=== PATIENT | female | born 1995 | race Caucasian/White ===

== ENCOUNTER 2020-11-24 17:44 | Emergency (ER) | payer OTHER ==
[~2020-11-24] VITALS: Ht 170.2 cm; Wt 95.3 kg
[~2020-11-24 17:44] MED LIST: ALBU17AE26
[2020-11-24 17:46] VITALS: BP_SYST 130
--- NOTE | 2020-11-24 18:10 | NUR ---
Patient to ER bed 4 to gown for evaluation. Side rails up.
--- NOTE | 2020-11-24 18:15 | NUR ---
ER at bedside examining patient.
--- NOTE | 2020-11-24 18:17 | NUR ---
PT ARRIVES FROM HOME W/ C/O MID CHEST WALL PAIN FOR APPROX 45 MIN. PT HAD HER TWO UPPER WISDOM TEETH REMOVED THIS AM. REPORTS HAVING A SYNCOPAL EPISODE IN THE RESTROOM THIS AM, C/O JIMENEZ 11/14
--- NOTE | 2020-11-24 18:25 | NUR ---
Pavel ferguson in ED - 11/24/20 at 1842 by RODNEYNLAURA WALE Marquez at bedside examining patient.
--- NOTE | 2020-11-24 18:40 | NUR ---
Patient transported to radiology via , accompanied by [employer].
[2020-11-24 19:03] LABS: BASOPHILS % (AUTO) 0.1 % (0.0-2.0); EOSINOPHILS # (AUTO) 0.2 K/uL (0.0-0.4); HEMATOCRIT 36.3 % (36-48); HEMOGLOBIN 12.1 g/dL (12.0-16.0); LYMPHOCYTES # (AUTO) 2.2 K/uL (1.0-5.5); LYMPHOCYTES % (AUTO) 12.7 % (20.5-51.5); MEAN CORPUSCULAR HEMOGLOBIN 30 pg (27-31); MEAN CORPUSCULAR HGB CONC 33 % (32-36); MEAN CORPUSCULAR VOLUME 90 fL (79.0-98.0); MONOCYTES # (AUTO) 0.8 K/uL (0.0-1.0); MONOCYTES % (AUTO) 4.9 % (1.7-9.3); NEUTROPHILS % (AUTO) 81.3 % (40.0-70.0); PLATELET COUNT (AUTO) 403 K/uL (130-430); RED BLOOD CELL COUNT(AUTO) 4.05 MIL/uL (4.2-6.2); RED CELL DISTRIBUTION WIDTH 12.7 % (9.0-15.0); WHITE BLOOD COUNT (AUTO) 17.2 K/uL (4.8-10.8)
--- NOTE | 2020-11-24 19:16 | NUR ---
CARE ENDORSED TO CHATO CLARK.
[2020-11-24 19:24] LABS: ALBUMIN 3.8 g/dL (3.4-4.8); CALCIUM 8.7 mg/dL (8.4-11.0); CREATININE 0.77 mg/dL (0.55-1.30); TOTAL BILIRUBIN 0.8 mg/dL (0.0-1.0)
[2020-11-24 19:31] LABS: PROTHROMBIN TIME 10.2 SECS (9.5-12.5)
[2020-11-24 20:04] VITALS: BP_SYST 130
--- NOTE | 2020-11-24 20:04 | NUR ---
Patient given written and verbal discharge instructions and verbalizes understanding. ER MD discussed with patient the results and treatment provided. Patient in stable condition. ID arm band removed. Patient educated on pain management and to follow up with PMD. Pain Scale 0/10. Opportunity for questions provided and answered. Medication side effect fact sheet provided.
== END 2020-11-24 20:04 | disposition home or self-care (01) ==
LOC: SED 17:44
DX: S09.90XA Unspecified injury of head, initial encounter (principal); R55 Syncope and collapse; R07.89 Other chest pain; J45.909 Unspecified asthma, uncomplicated; Z79.899 Other long term (current) drug therapy; X58.XXXA Exposure to other specified factors, initial encounter; Y93.89 Activity, other specified; Y92.89 Other specified places as the place of occurrence of the external cause; Y99.8 Other external cause status
CPT/HCPCS: 36415; 70450-TC; 71045; 76376; 80053; 81025; 83605; 84484; 85025; 85610-TC; 85730-TC; 93005; 99285

== ENCOUNTER 2023-12-12 13:18 | Emergency (ER) | payer OTHER ==
[~2023-12-12] VITALS: Ht 170.2 cm; Wt 104.3 kg
[2023-12-12 14:00] VITALS: BP_SYST 117; PULSE 73; RESP 18; TEMP 97.8; O2SAT 98
[2023-12-12 14:40] LABS: BASOPHILS % (AUTO) 0.3 % (0.0-2.0); EOSINOPHILS # (AUTO) 0.4 K/uL (0.0-0.4); LYMPHOCYTES # (AUTO) 2.7 K/uL (1.0-5.5); LYMPHOCYTES % (AUTO) 19.2 % (20.5-51.5); MEAN CORPUSCULAR HEMOGLOBIN 29 pg (27-31); MEAN CORPUSCULAR HGB CONC 33 % (32-36); MEAN CORPUSCULAR VOLUME 87 fL (79.0-98.0); NEUTROPHILS % (AUTO) 70.5 % (40.0-70.0); PLATELET COUNT (AUTO) 471 K/uL (130-430); RED BLOOD CELL COUNT(AUTO) 4.16 MIL/uL (4.2-6.2); RED CELL DISTRIBUTION WIDTH 12.4 % (9.0-15.0); WHITE BLOOD COUNT (AUTO) 14.2 K/uL (4.8-10.8)
[2023-12-12 15:00] LABS: CREATININE 0.8 mg/dL (0.55-1.30)
[2023-12-12 15:19] VITALS: BP_SYST 117; PULSE 73; RESP 18; TEMP 97.8; O2SAT 98
== END 2023-12-12 15:20 | disposition home or self-care (01) ==
LOC: SED 13:18
DX: R55 Syncope and collapse (principal); J45.909 Unspecified asthma, uncomplicated; Z79.899 Other long term (current) drug therapy
CPT/HCPCS: 36415; 80048; 85025; 93005; 99284